=== PATIENT | male | born 1970 | race Caucasian/White ===

== ENCOUNTER 2021-04-24 05:55 | Inpatient (IN) ==
--- NOTE | 2021-04-09 09:25 | PAT Medication Instructions ---
Medication Instructions Date of Service April 09, 2021 Home Medications aspirin 81 mg tablet,delayed release 81 mg PO Q2D ASK your prescriber and surgeon aspirin 81 mg tablet,delayed release 81 mg PO Q2D Other Notes If you have any questions please call us at [phone] or [phone] or [phone] or [phone]
--- NOTE | 2021-04-10 14:09 | Anesthesiology Consultation ---
Date of Service April 10, 2021 Assessment & Plan (1) Encounter for pre-operative examination: COVID screening: Per assessment on 04/10: Travel screen negative, no known COVID- 19 positive contacts or current COVID-19 related symptoms. Surgeon arranging preop COVID testing. Awaiting results. Chart Review Chart Review: Acceptable Risk for Surgery and Patient seen in Pre Admission Testing Teaching & Discussion Pre-Anesthesia Teaching/Discussion Notes: Instructed NPO after midnight before surgery,except medications with 15 cc of water. Medication instructions provided according to the PAT guidelines. History Surgery Operation Date: 04/24/21 12:55 Proposed Procedures p C5-C7 Anterior Cervical Discectomy and Fusion, Spinal Cord Monitoring - Kaushal Nava DO Height/Weight Height: 5 ft 10.5 in Weight: 117.9 kg Allergies Allergy/AdvReac Type Severity Reaction Status Date / Time No Known Allergies Allergy Verified 04/07/21 07:49 Medications Home Medications Medication Instructions Recorded Confirmed Last Taken aspirin 81 mg tablet,delayed 81 mg PO Q2D 09/20/19 04/07/21 Unknown release Past Medical History Medical History Cervical spinal stenosis Factor V Leiden mutation Dx d/t family hx- preventively on ASA 81 QOD, no personal bleeding issues History of COVID-19 08/2020 > Symptoms at time of fever, chills, fatigue, cough > resolved Exercise / Class Metabolic Activity II 4-5 Yardwork/Stairs/Walk up hill (one flight of stairs (no chest pain, no sob)) Past Family History Family History Mother Diabetes Stroke Hypertension Father Diverticulitis Lung cancer Grandmother (Paternal) Arthritis Grandfather (Paternal) Diabetes Hypertension Past Surgical History Surgical History History of arthroscopy Right knee Past Anesthesia History No Hx of Anesthesia Complications and No Family Hx of Anesthesia Complications (except father (combative)) History of PONV No Hx of PONV and Hx of Motion Sickness STOP BANG Total 4 Social History Smoking Status: Never smoker tobacco type: smokeless tobacco Do You Dip or Chew Tobacco: Yes (3 cans/week- advised none DOS ) Hx Alcohol Use: Yes Alcohol type: beer alcohol intake frequency: a few times a week Hx Substance Use: No substance use type: does not use Review of Systems + snoring. No witnessed apnea events. Patient denies chest pain, shortness of breath, dyspnea on exertion, fever, chills, cough, wheezing, palpitations. Physical Exam Vital Signs VITALS BP 148/87 P 96 TEMP 99.2 SP02 99%RA RESP 16 PHYSICAL Full cervical extension range of motion (+ cervicalgia with extension). Full TMJ range of motion. TMD 4 finger breaths Mallampati Score 3 Dentition: intact, + upper front tooth repair Lungs: clear throughout to auscultation Cardiac: regular rate and rhythm, no murmurs noted Spine: normal Extremities: no edema Short, thick neck Lab Results Anesthesia Preop Results Results Anesthesia Widget: WBC 6.00 K/uL (4.8-10.8) 04/10/21 Hgb 13.1 g/dL (14.0-18.0) L 04/10/21 Hct 39.4 % (42-52) L 04/10/21 Plt 187 K/uL (130-400) 04/10/21 Na 140 mmol/L (136-145) 04/10/21 K 4.5 mmol/L (3.5-5.1) 04/10/21 Cl 106 mmol/L (98-107) 04/10/21 CO2 29 mmol/L (21-32) 04/10/21 BUN 16 mg/dl (7-18) 04/10/21 Creat 1.04 mg/dl (0.6-1.4) 04/10/21 Glucose Level 114 mg/dl (70-99) H 04/10/21 PT 10.3 Seconds (9.0-12.0) 04/10/21 PTT 23.7 Seconds (21.0-31.0) 04/10/21 INR 1.0 (0.9-1.1) 04/10/21 Urine Color Yellow 04/10/21 Urine Appearance Clear (Clear) 04/10/21 Urine pH 8.0 (4.5-7.5) H 04/10/21 Urine Specific [place] 1.017 (1.000-1.030) 04/10/21 Urine Protein Negative (Negative) 04/10/21 Urine Glucose (UA) Negative (Negative) 04/10/21 Urine Ketones Negative (Negative) 04/10/21 Urine Blood Negative (Negative) 04/10/21 Urine Nitrite Negative (Negative) 04/10/21 Urine Bilirubin Negative (Negative) 04/10/21 Urine Urobilinogen Negative (Negative) 04/10/21 Urine Leukocyte Esterase Negative (Negative) 04/10/21 Blood Type AB Negative 04/10/21 Antibody Screen NEGATIVE 04/10/21 Testing Electrocardiogram Date: 04/10/21 Findings: + NSR @ (86) Chest X-Ray Date: 04/10/21 Findings: + NAD
[2021-04-24] MEDS ORDERED: ceFAZolin 2000MG 2,000 MG/15 ML SYR IV SCH (06:00)
[2021-04-24] MEDS ORDERED: CeleBREX 200 MG CAP PO SCH (06:00)
[2021-04-24] MEDS ORDERED: ACETAMINOPHEN 500 MG TAB PO SCH (06:00)
[2021-04-24] MEDS ORDERED: GABAPENTIN 900 MG DOSE PO SCH (06:00)
[2021-04-24] MEDS ORDERED: LR 15ML/HR IV SCH (06:00)
[2021-04-24] MEDS ORDERED: fentaNYL citrate 100 MCG/2 ML VIAL ONE (07:04)
[2021-04-24] MEDS ORDERED: MIDAZOLAM HCL 1 MG/ML 2ML VIAL ONE (07:04)
--- NOTE | 2021-04-24 07:29 | History & Physical Bridge Note ---
Date of Service April 24, 2021 History & Physical Bridge Note I have examined the patient, reviewed the History & Physical and in the interval since the performance of the History & Physical I have noted the following changes of clinical significance: no changes noted
--- NOTE | 2021-04-24 07:30 | History & Physical Report ---
Date of Service April 24, 2021 Assessment & Plan (1) Cervical radiculopathy: Admission and Anticipated Discharge Date Admission Date: C5-C7 anterior cervical discectomy and fusion History of Present Illness Chief Complaint: Neck and arm pain Primary Care Provider: Ezio Black MD This is a 50-year-old male presents with car persistent neck and arm pain. Failing course of nonoperative care is here for surgical invention. Allergies Allergy/AdvReac Type Severity Reaction Status Date / Time No Known Allergies Allergy Verified 04/24/21 06:28 Home Medications Medication Instructions Recorded Confirmed Type aspirin 81 mg tablet,delayed 81 mg PO Q2D 09/20/19 04/24/21 History release ibuprofen 200 mg PO Q6H PRN 04/24/21 04/24/21 History Past Med/Surg History Medical History Cervical spinal stenosis Factor V Leiden mutation Dx d/t family hx- preventively on ASA 81 QOD, no personal bleeding issues History of COVID-19 08/2020 > Symptoms at time of fever, chills, fatigue, cough > resolved Surgical History History of arthroscopy Right knee Family History Mother Diabetes Stroke Hypertension Father Diverticulitis Lung cancer Grandmother (Paternal) Arthritis Grandfather (Paternal) Diabetes Hypertension Social History (Updated 09/20/19 @ 11:28 by Rita Zhang MA) Smoking Status: Never smoker Second Hand Exposure: Yes; Do You Dip or Chew Tobacco: Yes (3 cans/week- advised none DOS ); Tobacco Cessation Education Requested by Patient: No Hx Alcohol Use: Yes Alcohol type: beer Hx Substance Use: No Preferred Language: Armenian Head Librarian Required: No Beliefs That Will Affect Care: None Current Living Situation: Family Feels Safe at Home: Yes Safety Concerns: Feels Safe At This Time Assistive Devices: None Physical Exam Physical Exam: Patient is alert and oriented Heart regular in rhythm Lungs clear to auscultation Results & Data ([facility]) Vital Signs (Past 12 Hours) Vital Signs Temp Pulse Resp BP Pulse Ox 04/24/21 06:32 37.6 C H 89 20 161/86 H 99
[2021-04-24] MEDS ORDERED: HYDROmorphone INJ 2 MG/ML SYR/VIAL IV PRN (08:18)
[2021-04-24] MEDS ORDERED: ONDANSETRON INJ 2 MG/ML 2 ML VIAL IV PRN ×2 (08:18→11:51)
[2021-04-24] MEDS ORDERED: ATROPINE SULFATE 0.1 MG/ML 10ML SYR IV PRN (08:18)
[2021-04-24] MEDS ORDERED: ePHEDrine sulfate 50 MG/ML AMP IV PRN (08:18)
[2021-04-24] MEDS ORDERED: fentaNYL citrate 100 MCG/2 ML VIAL IV PRN (08:18)
[2021-04-24] MEDS ORDERED: HYDROmorphone INJ 2 MG/ML SYR/VIAL ONE (08:20)
[2021-04-24] MEDS ORDERED: SUCCINYLCHOLINE CHLORIDE 20 MG/ML 10 ML VIAL IV ONE (08:33)
[2021-04-24] MEDS ORDERED: ROCURONIUM BROMIDE 10 MG/ML 5 ML VIAL IV ONE (08:33)
[2021-04-24] MEDS ORDERED: LIDOCAINE 2% 2 ML VIAL/AMP(20MG/ML) INFIL ONE (08:33)
[2021-04-24] MEDS ORDERED: ONDANSETRON INJ 2 MG/ML 2 ML VIAL ONE (08:33)
[2021-04-24] MEDS ORDERED: PROPOFOL IV EMULSION 10 MG/ML 20 ML VIAL IV ONE (08:33)
[2021-04-24] MEDS ORDERED: DEXAMETHASONE SOD INJ 4 MG/ML VIAL ONE (08:33)
[2021-04-24] MEDS ORDERED: FLOSEAL HEMOSTATIC MATRIX 10ML TOP ONE (08:45)
[2021-04-24] MEDS ORDERED: NEOSTIGMINE METHYLSULFATE 1 MG/ML 10ML VIAL ONE (08:54)
[2021-04-24] MEDS ORDERED: ePHEDrine sulfate 50 MG/ML SYR ONE (08:54)
[2021-04-24] MEDS ORDERED: PHENYLEPHRINE 100MCG/ML 5ML SYR ONE (08:54)
[2021-04-24] MEDS ORDERED: GLYCOPYRROLATE 0.2 MG/ML VIAL ONE (08:54)
--- NOTE | 2021-04-24 09:30 | Operative Report ---
Post Operative Report Pre & Post Diagnosis Operation Date: 04/24/21 07:45 Pre-Op Diagnosis: Spinal Stenosis, Cervical Region Post-Op Diagnosis: Spinal Stenosis, Cervical Region I identified the patient and participated in the time-out.: Yes Procedure Operation Date: 04/24/21 07:45 Actual Procedures #1 anterior cervical discectomy with bilateral foraminotomies C5-6 and C6-C7. #2 anterior cervical arthrodesis C5-6 C6-7. #3 placement of 8 mm spiral cage filled I factor at C5-6 and C6-7. #4 application of 5 complete screws across C5-6 C6-7. Surgeon Kaushal Nava, DO Artificial Breeding Technician David Hitchcock Estimated Blood Loss 10 Findings See Below The patient is 5 foot 10 inches tall weighing over 118 kg with a BMI in excess of 37. The patient's body habitus did contribute to significant technical diff iculty with positioning and exposure adding at least 50% increase to the operative time. Specimens None Indications This is a 50-year-old male who presents with above-mentioned diagnosis after failing since course of nonoperative care is here for the above-mentioned procedure. Description of Procedure Patient was met with identified informed consent obtained. Patient was then taken to the operative suite underwent ablation placed in supine position Tai table head Nair head ordered. All bony prominences well-padded eyes inspected to ensure no external pressure placed upon the. This point the anterior cervical spine was prepped and draped in a sterile fashion. The assistance of fluoroscopy identified the C6 vertebral body and a transverse incision was placed along the right anterior aspect of the cervical spinal lines region. Sharp dissection with the assistance of bipolar electrocautery performed down to and exposing the anterior cervical spine from C5-C7. Self- retaining retractors placed. Then performed a complete discectomy of C5-6 out to the uncovertebral's bilaterally. Hamilton distraction pins were utilized to assist in visualization. Removed all posterior annular fibers longitudinal ligament performed bilateral foraminotomies. The endplates were then burred to subcortical being bone and an 8 mm spiral cage filled with I factor tapped in position. Then proceeded to C6-C7. Again complete discectomy performed out to the uncovertebral's bilaterally. Hamilton distracting pins again utilized. Removed all posterior annular fibers longitudinal ligament bilateral foraminotomies performed. Endplates were then burred to subcortical bleeding bone and a 8 mm spiral cage filled with I factor tapped in position. Distracting apparatus was removed all anterior osteophytes burred to a smooth cortical surface and a santoyo plate and screws applied with the assistance of fluoroscopy. The incision was then copiously irrigated explored to ensure no damage to surrounding structures remaining bleeding. 10 round DREW drain inserted. Incision was then closed with 2-0 Vicryl in the fascia 4 Monocryl for final skin closure. Steri-Strip sterile dressings placed. Patient waken taken back in stable condition. Please note spinal cord monitoring was utilized at the procedure no changes noted. Wendy salgado was present at the entire surgery involved the patient positioning complex portions of the surgery and final skin closure. I attest to the content of the Intraoperative Record and any orders documented therein. Any exceptions are noted below.
--- NOTE | 2021-04-24 09:47 | Fluoroscopy Report ---
FL cervical 2-3V CLINICAL HISTORY: ACDF C5-7 COMPARISON STUDY: None FLUOROSCOPY TIME: 11 seconds. NUMBER OF FLUOROSCOPIC IMAGES: 2 FINDINGS: 2 intraoperative fluoroscopic spot images demonstrate postsurgical changes of anterior cerv ical discectomy and fusion at the C5-7 level. IMPRESSION: Intraoperative fluoroscopic spot images demonstrating anterior cervical discectomy and f usion at the C5-7 level. ACT 112: Negative or not required by law. Electronically signed by: Giovani Call M.D. 04/24/2021 9:45 AM
--- NOTE | 2021-04-24 11:04 | Anesthesiology Progress Note ---
Date of Service April 24, 2021 Anesthesia Post Procedure Vital Signs Vital Signs: Temp Pulse Pulse Resp BP BP Pulse Ox 04/24/21 11:00 84 18 143/83 H 97 04/24/21 10:50 36.9 C 74 16 137/92 96 04/24/21 10:40 65 14 138/92 94 04/24/21 10:30 70 19 139/98 94 04/24/21 10:20 66 13 147/95 H 97 04/24/21 10:10 74 19 138/99 97 04/24/21 10:00 71 19 147/92 H 97 04/24/21 09:50 85 18 142/87 H 98 04/24/21 09:44 37.5 C 81 17 157/103 H 98 04/24/21 06:32 37.6 C H 89 20 161/86 H 99 Pain Intensity Medial Neck: Pain Intensity: 6 Left Knee: Pain Intensity: 2 Transfer of Care Handoff Completed per policy Notes Mental Status: alert / awake / arousable and participated in evaluation Patient Amnestic to Procedure: Yes Nausea / Vomiting: adequately controlled Pain: adequately controlled Airway Patency, RR, SpO2: stable & adequate BP & HR: stable & adequate Hydration State: stable & adequate Anesthetic Complications: no major complications apparent
[2021-04-24] MEDS ORDERED: MAGNESIUM HYDROXIDE SUSP 30 ML UDC PO PRN (11:51)
[2021-04-24] MEDS ORDERED: dexAMETHasone 8 MG in SYRINGE 0 ML IV PRN (11:51)
[2021-04-24] MEDS ORDERED: ONDANSETRON 4 MG OD TAB PO PRN (11:51)
[2021-04-24] MEDS ORDERED: FAMOTIDINE 20 MG TAB PO PRN (11:51)
[2021-04-24] MEDS ORDERED: HYDROmorphone INJ 0.5 MG/0.5 ML SYR IV PRN (11:51)
[2021-04-24] MEDS ORDERED: hydrOXYzine HCl 25 MG TAB PO PRN (11:51)
[2021-04-24] MEDS ORDERED: oxyCODONE HCL IR 5 MG TAB (IMMEDIATE RELEASE) PO PRN (11:51)
[2021-04-24] MEDS ORDERED: PROMETHAZINE HCL 12.5 MG in SODIUM CHLORIDE 0.9% 50 ML IV PRN (11:51)
[2021-04-24] MEDS ORDERED: METOCLOPRAMIDE HCL INJ 5 MG/ML 2 ML VIAL IV PRN (11:51)
[2021-04-24] MEDS ORDERED: SOD PHOSPHATE/SOD BIPHOSPHATE ENEMA 132 ML BTL PR PRN (11:51)
[2021-04-24] MEDS ORDERED: RACEPINEPHRINE 2.25% NEBU SOLN 0.5 ML VIAL INH PRN (11:51)
[2021-04-24] MEDS ORDERED: ACETAMINOPHEN 1,000 MG/100 ML VIAL IV PRN (11:51)
[2021-04-24] MEDS ORDERED: LORazepam 0.5 MG/1 ML VIAL IV PRN (11:51)
[2021-04-24] MEDS ORDERED: DO NOT ADMINISTER PNEUMOCOCCAL VACCINE PRN (11:51)
[2021-04-24] MEDS ORDERED: LORazepam 0.5 MG TAB PO PRN (11:51)
[2021-04-24] MEDS ORDERED: diphenhydrAMINE Capsule 25 MG CAP PO PRN (11:51)
[2021-04-24] MEDS ORDERED: ALUMINUM/MAGNESIUM SUSP 30 ML UDC PO PRN (11:51)
[2021-04-24] MEDS ORDERED: NALOXONE HCL 0.4 MG/1 ML VIAL/CARP IV PRN (11:51)
[2021-04-24] MEDS ORDERED: DO NOT ADMINISTER FLU VACCINE PRN (11:51)
[2021-04-24] MEDS: LACTATED RINGER'S 1,000 ML IV SCH ×2 (11:55→18:02)
[2021-04-24] MEDS: traMADol HCL 50 MG TABLET PO PRN ×2 (12:24→17:03)
[2021-04-24] MEDS ORDERED: COUGH DROP (SUGAR FREE) LOZ 24 LOZ/1 BOX BUCCAL PRN (13:57)
[2021-04-24] MEDS: HYDROmorphone INJ 1 MG/ML SYRINGE IV PRN ×2 (14:04→21:02)
[2021-04-24] MEDS: ceFAZolin 2000MG 2,000 MG/15 ML SYR IV SCH (16:34)
[2021-04-24] MEDS ORDERED: DOCUSATE SODIUM/SENNA 50/8.6MG TAB PO SCH (21:00)
[2021-04-24] MEDS: ACETAMINOPHEN 500 MG TAB PO PRN (21:01)
[2021-04-25] MEDS: ceFAZolin 2000MG 2,000 MG/15 ML SYR IV SCH (00:49)
[2021-04-25] MEDS: ACETAMINOPHEN 500 MG TAB PO PRN (05:01)
[2021-04-25] MEDS: HYDROmorphone INJ 1 MG/ML SYRINGE IV PRN (05:02)
[2021-04-25] MEDS: POLYETHYLENE (MIRALAX) 17 GM PACK PO SCH ×2 (05:02→12:10)
--- NOTE | 2021-04-25 08:44 | Discharge Summary ---
Date of Service April 25, 2021 Admission HPI Per Admitting Provider This is a 50-year-old male presents with car persistent neck and arm pain. Failing course of nonoperative care is here for surgical invention. Admission Exam (Per Admitting) Constitutional WD/WN, vitals as above Eyes normal visual acosta by confrontation ENMT external ear and nose normal, oropharynx normal Neck normal visual inspection Respiratory normal respiratory effort Cardiovascular Extremities: normal capillary refill Chest (Breasts) Chest: normal inspection of chest Gastrointestinal (Abdomen) Inspection/Auscultation: abdomen normal to inspection Musculoskeletal no cyanosis or clubbing, extremities motor strength 5/5 Extremities: extremities normal to inspection and strength 5/5 throughout Skin no rashes, warm and dry Neurologic normal touch/pain/proprioception and moves all extremities Psychiatric A+Ox3, euthymic affect Discharge Data Procedures Performed Operation Date: 04/24/21 07:45 Actual Procedures p C5-C7 Anterior Cervical Discectomy and Fusion, Spinal Cord Monitoring(Bilateral) - Kaushal Nava DO Hospital Course (1) Cervical radiculopathy: Patient is being discharged home on postoperative day 1 status post ACDF at C5-6, C6-7. He had an uneventful evening. Arm symptoms greatly improved. Mild dysphagia, no dysphonia. Is eating a soft diet without issue. DREW drain output last shift was 20 cc. He is up and amatory around the room and using the restroom without difficulty. He has been voiding since surgery. [place] J collar intact. Discharge Instructions ACTIVITY RECOMMENDATIONS: SELF CARE INSTRUCTIONS AFTER CERVICAL FUSIONS 1. No smoking. Smoking drastically decreases the chance of a solid fusion. 2. No bending, lifting more than 5 pounds, or twisting (roll like a log when turning in bed). 3. You may shower 3 days after surgery. Thoroughly dry wound. Do not soak in the tub. 4. Cervical collar: Must be worn at all times including sleeping. You may remove the brace only to bath, eat and if you are sitting in a recliner. 5. Please walk as much as you can for exercise. Gradually increase the distance that you walk as your endurance increases. SPECIAL CARE INSTRUCTIONS: VERY IMPORTANT TO READ AND REVIEW A. Do not take any anti-inflammatory medications (i.e. Indocin, Advil, Aspirin, Naprosyn, Aleve, Motrin, etc.) as these may inhibit the chance of a solid fusion. Tylenol is okay to take. B. Your surgical incision has been closed with a cosmetic suture under the skin that will dissolve in about 6 weeks. In 14 days, you can use a pair of clean scissors and cut the suture that is left outside of the skin at the ends of your incision. C. Complications are uncommon, but please contact us if you have any signs or symptoms of: 1. wound infection (fever higher than 102.5 degrees F, redness, separation of wound, drainage, or increasing pain from the incision) 2. blood clots in legs (pain, swelling, redness and warmth in legs) 3. urinary tract infection (fever higher than 102.5 degrees, burning upon urination or increased frequency of urination) 4. nerve problems (inability to walk on your toes or heels, numbness, loss of bowel or bladder control) 5. any other symptoms that concern you. D. Please call the office at if you have any concerns or questions about your operation or recovery. MANAGING PAIN AFTER SPINAL SURGERY 1. Narcotic medication is intended for short-term use and will be provided for surgical pain. Surgical pain usually lasts for a period of 4-6 weeks. Narcotic medication includes Percocet, Vicodin, Darvocet, Tylenol #3 or Lortab. 2. Longer-term pain is more appropriately treated with non-narcotic medication such as Tylenol ES. 3. Muscle spasm is not appropriately treated with narcotics. Muscle relaxers such as Soma, Flexeril or Skelaxin can be used along with Tylenol ES. 4. Remember that we all live with some "aches and pains". This is not unusual or uncommon after an injury or as we get older. 5. We will provide appropriate medication within the normal guidelines of their prescribed use. We will also be very cautious and aware of potential abuse and extended duration of patients' medication needs. 6. Please allow 2-3 days to process refills. Prescriptions will not be mailed but must be picked up at the office. FOLLOW UP VISIT: Keep your scheduled follow-up appointment. Any questions, please call the office at . Supervising Physician Co-Signing Physician Notes Dr. Kaushal Nava
[2021-04-25] MEDS ORDERED: ASPIRIN 81 MG ECTAB PO SCH (09:00)
[2021-04-26] MEDS ORDERED: bisacodyL 10 MG SUPP PR PRN (09:30)
== END 2021-04-25 13:45 | disposition home or self-care (01) | DRG 472 ==
LOC: ASU 05:55 → 3E 09:48